=== PATIENT | female | born 1965 | race Hispanic/Latino ===

== ENCOUNTER → 2021-12-31 | Outpatient (CLI) | payer OTHER | END | disposition home or self-care (01) | LOC: RAH 10:35 | PROVIDERS: ATTEND Physical Medicine & Rehabilitation | DX: R29.2 Abnormal reflex (principal) | CPT/HCPCS: 72050 ==

== ENCOUNTER → 2022-02-24 | Outpatient (CLI) | payer OTHER | END | disposition home or self-care (01) | LOC: RAH 10:48 | PROVIDERS: ATTEND Physician Assistant | DX: M54.16 Radiculopathy, lumbar region (principal); M54.50 Low back pain, unspecified; M25.551 Pain in right hip; M25.552 Pain in left hip | CPT/HCPCS: 72114; 73521 ==

== ENCOUNTER → 2024-09-21 | Outpatient (CLI) | payer OTHER, MEDICAID ==
--- NOTE | 2024-09-22 12:08 | HMCIMG ---
EXAM: MR Lumbar Spine without intravenous contrast. CLINICAL HISTORY: History of spinal stenosis in the lumbar region with neurogenic claudication. TECHNIQUE: Magnetic resonance images of the lumbar spine in multiple planes. CONTRAST: None. COMPARISON: None. EXAMINATION: For this examination, spinal levels were labeled assuming five non-ribs bearing, lumbar-type vertebrae, with the inferior level labeled L5. No acute fracture. Straightening of lumbar lordotic curvature. Grade I anterolisthesis of L3 over L4. Moderate to severe reduction in disc height with type I Modic changes seen at L4-L5 levels. Moderate to severe reduction in disc height at the T11-12, T12-L1, L2-3, and L5-S1 levels. Multiple Schmorl nodes are seen at the thoracolumbar spine. Normal marrow signal of the vertebrae. Conus medullaris terminates at the T12-L1 level. No abnormal epidural masses. The surrounding soft tissues are unremarkable. Individual spinal levels are described as follows: T12-L1: 4.5 mm left paracentral disc protrusion. No spinal canal stenosis. No neural foraminal, lateral recess narrowing. Moderate bilateral facet arthropathy with ligamentum flavum hypertrophy. L1-L2: 2 mm circumferential disc bulge. Mild spinal canal stenosis. Bilateral mild facet joint arthropathy. No neural foraminal or lateral recess narrowing. L2-3: 6 mm circumferential disc extrusion. Severe spinal canal stenosis. Severe bilateral neural foraminal narrowing with compression of bilateral exiting nerve roots. Severe bilateral lateral recess narrowing with compression of the bilateral traversing nerve roots. Moderate to severe bilateral facet joint arthropathy with ligamentum flavum hypertrophy. L3-4: 6 mm circumferential disc extrusion. Severe spinal canal stenosis. Severe bilateral neural foraminal narrowing with compression of bilateral exiting nerve roots. Severe bilateral lateral recess narrowing with compression of the bilateral traversing nerve roots. Moderate to severe bilateral facet joint arthropathy with ligamentum flavum hypertrophy. L4-5: 6 mm posterior central and left paracentral disc extrusion. Severe spinal canal stenosis. Severe left neural foraminal narrowing with impingement of the left exiting L4 nerve roots. Moderate right neural foraminal narrowing with mild impingement of the right exiting L4 nerve roots. Moderate to severe bilateral lateral recess narrowing with compression of the bilateral traversing L5 nerve roots. Left is greater than right. Moderate to severe bilateral facet arthropathy with ligamentum flavum hypertrophy. L5-S1: 7 mm circumferential disc bulge. Moderate to severe spinal canal stenosis. Mild bilateral neural foraminal narrowing with impingement of the exiting L5 nerve roots. Moderate bilateral lateral recess narrowing with impingement of the bilateral traversing S1 nerve roots. Moderate to severe bilateral facet and ligamentum flavum hypertrophy. IMPRESSION. Multilevel degenerative disc disease and facet arthropathy in the thoracolumbar spine are most pronounced at the L2-3, L3-4, L4-5, and L5-S1 levels. Moderate to severe spinal canal stenosis with impingement of the underlying cauda equina nerve root at L2-3 and L3-4 levels. Moderate to severe spinal canal stenosis at L4-5 and L5-S1 levels No acute bony abnormality. Mild diffuse posterior subcutaneous edema. /[place]
--- NOTE | 2024-09-22 12:10 | HMCIMG ---
EXAM: MR Cervical Spine without intravenous contrast. CLINICAL HISTORY: Pain. TECHNIQUE: Magnetic resonance images of the cervical spine in multiple planes. CONTRAST: None. COMPARISON: None. FINDINGS: The imaged posterior fossa is unremarkable. The craniocervical junction is intact. No acute fracture. Reversal of cervical lordotic curvature. Multilevel disc desiccation is seen at the cervical spine. Moderate to severe reduction in the disc height at C5-6 and C6-7 levels. Alignment deformity is seen at the C5-6 level. Normal marrow signal of the vertebrae. No abnormal signal involves the cervical cord. No extra-axial masses. The surrounding soft tissues are unremarkable. Level by level, disease is present as follows: C1-C2: No osteoarthritis. C2-C3: No disc bulge or herniation is present, no neural foraminal, lateral recess, or spinal canal stenosis. C3-4: 5 mm posterior central and left foraminal disc extrusion. Mild left uncovertebral osteophyte. Moderate to severe left neural foraminal narrowing with impingement of the left exiting nerve root. Moderate spinal canal stenosis with compression on the cervical cord. Bilateral moderate facet arthropathy. C4-5: 2 mm asymmetrical disc bulge with mild left neural foraminal narrowing. Mild spinal canal stenosis. Mild to moderate bilateral facet arthropathy. C5-6: 4 mm circumferential disc protrusion with bilateral mild prominence of uncovertebral osteophytes. Mild to moderate bilateral neural foraminal narrowing. Moderate to severe spinal canal stenosis with compression on the cervical cord. C6-7: 4 mm circumferential disc protrusion with prominence of bilateral uncovertebral osteophytes. Moderate to severe bilateral neural foraminal narrowing. Moderate spinal canal stenosis. C7-T1: 2 mm posterior central disc protrusion. No neural foraminal, lateral recess, or spinal canal stenosis. IMPRESSION Multilevel degenerative disc disease in the cervical spine is most pronounced at C3-4, C5-6, and C6-7 levels. Multiple facet arthropathy. Moderate to severe spinal canal stenosis with compression of the underlying cervical cord at C2-3, C5-6, and C6-7 levels. /[place]
== END | disposition home or self-care (01) ==
LOC: RAH 13:48
PROVIDERS: ATTEND Physical Medicine & Rehabilitation
DX: M51.360 Other intervertebral disc degeneration, lumbar region with discogenic back pain only (principal); M50.11 Cervical disc disorder with radiculopathy, high cervical region; M47.22 Other spondylosis with radiculopathy, cervical region; M50.122 Cervical disc disorder at C5-C6 level with radiculopathy; M50.123 Cervical disc disorder at C6-C7 level with radiculopathy; M50.13 Cervical disc disorder with radiculopathy, cervicothoracic region; M51.25 Other intervertebral disc displacement, thoracolumbar region; M51.379 Other intervertebral disc degeneration, lumbosacral region without mention of lumbar back pain or lower extremity pain; M48.07 Spinal stenosis, lumbosacral region; M51.26 Other intervertebral disc displacement, lumbar region; M47.816 Spondylosis without myelopathy or radiculopathy, lumbar region; M51.35 Other intervertebral disc degeneration, thoracolumbar region; M48.061 Spinal stenosis, lumbar region without neurogenic claudication; M43.8X6 Other specified deforming dorsopathies, lumbar region; M43.16 Spondylolisthesis, lumbar region; M40.56 Lordosis, unspecified, lumbar region; M40.50 Lordosis, unspecified, site unspecified; M51.45 Schmorl's nodes, thoracolumbar region; R60.0 Localized edema
CPT/HCPCS: 72141; 72148